=== PATIENT | male | born 1955 | race Caucasian/White ===

== ENCOUNTER 2019-04-03 13:43 | Outpatient (CLI) | payer BC ==
--- NOTE | 2019-04-04 22:15 | XRAY Report ---
Reason: HAND JOINT PAIN,RIGHT Procedure Date: 04/03/2019 Accession Number: [id number] / [id number] Procedure: XRN - Hand 3 View RT CPT Code: FULL RESULT: EXAM: RIGHT HAND RADIOGRAPHY EXAM DATE: 04/03/2019 02:09 PM. CLINICAL HISTORY: HAND JOINT PAIN,RIGHT. COMPARISON: None. TECHNIQUE: 3 views. FINDINGS: Bones: No acute fractures or suspicious bone lesions. Joints: No subluxations. Soft Tissues: Unremarkable. IMPRESSION: No acute radiographic abnormalities. RADIA
== END 2019-04-03 13:44 | disposition home or self-care (01) ==
LOC: DI.N 13:43
PROVIDERS: ATTEND Family Medicine
DX: M79.641 Pain in right hand (principal)

== ENCOUNTER 2019-04-17 08:00 | Outpatient (CLI) | payer BC ==
[2019-04-17 13:00] LABS: BASOPHILS # (AUTO) 0.1 10^3/uL (0.0-0.1); BASOPHILS % (AUTO) 0.7 %; EOSINOPHILS # (AUTO) 0.6 10^3/uL (0.0-0.7); EOSINOPHILS % (AUTO) 6.1 %; HGB - HEMOGLOBIN 16.3 g/dL (14.0-18.0); LYMPHOCYTES # (AUTO) 4.1 10^3/uL (1.5-3.5); LYMPHOCYTES % (AUTO) 45.5 %; MEAN CORPUSCULAR HEMOGLOBIN 33.2 pg (27.0-31.0); MEAN CORPUSCULAR HGB CONC 34.4 g/dL (32.0-36.0); MEAN CORPUSCULAR VOLUME 96.5 fL (80.0-94.0); MEAN PLATELET VOLUME 10.7 fL (7.4-11.4); MONOCYTES # (AUTO) 0.7 10^3/uL (0.0-1.0); MONOCYTES % (AUTO) 8.1 %; NEUTROPHILS # (AUTO) 3.6 10^3/uL (1.5-6.6); NEUTROPHILS % (AUTO) 39.2 %; PLT - PLATELET COUNT 250 10^3/uL (130-450); RED BLOOD COUNT 4.91 10^6/uL (4.70-6.10); RED CELL DISTRIBUTION WIDTH 12.4 % (12.0-15.0); WHITE BLOOD COUNT 9.1 x10^3/uL (4.8-10.8)
[2019-04-17 17:33] LABS: ALBUMIN 4.3 g/dL (3.2-5.5); ALBUMIN/GLOBULIN RATIO 1.3 (1.0-2.2); ALKALINE PHOSPHATASE 84 IU/L (42-121); ALT ALANINE AMINOTRANSFERASE 28 IU/L (10-60); AST ASPARTATE AMINOTRANSFERASE 37 IU/L (10-42); BILIRUBIN,TOTAL 0.8 mg/dL (0.2-1.0); BUN - BLOOD UREA NITROGEN 15 mg/dL (6-20); CARBON DIOXIDE - CO2 25 mmol/L (21-32); CHLORIDE 105 mmol/L (101-111); CHOL/HDL RATIO 3.3 (<5.0); CHOLESTEROL 189 mg/dL; CREATININE 0.8 mg/dL (0.6-1.2); GFR - MDRD 98 (>89); GLUCOSE 97 mg/dL (70-100); HDL CHOLESTEROL 57 mg/dL; LDL CHOLESTEROL,CALCULATED 105 mg/dL; LDL/HDL RATIO 1.8 (<3.6); SODIUM 140 mmol/L (135-145); TOTAL PROTEIN 7.6 g/dL (6.7-8.2); VLDL CHOLESTEROL 27 mg/dL
== END 2019-04-17 08:01 | disposition home or self-care (01) ==
LOC: LAB.N 08:00
PROVIDERS: ATTEND Family Medicine
DX: I10 Essential (primary) hypertension (principal)
CPT/HCPCS: 36415; 80053; 80061; 83721; 84443; 85025

== ENCOUNTER 2021-10-29 11:47 | Emergency (ER) | payer BC, MEDICARE ==
--- NOTE | 2021-10-29 12:48 | ED Physician Documentation ---
History of Present Illness - Stated complaint Stated Complaint: HIGH BP - Chief complaint Chief Complaint: Cardiac - History obtained from History obtained from: Patient - Additonal information Additional information: Patient comes emergency department With chief complaint of elevated blood pressure. Patient denies any symptoms. No chest pain, shortness of breath, visual changes, or other focal neurologic deficits. He states that he stopped his Norvasc and lisinopril about a year ago after being on them for 8 years, because he felt he did not need them anymore. He had retired, but is attempting to get back into employment and when he went for a fit testing for prospective job at the [employer], he was told to come here because his blood pressure was 200/110. Patient states that he started taking his blood pressure medications again about 3 days ago, but his blood pressure still high. He got a reading of 180/100 at home, but then it did come down to 175/75. He denies any other complaints at this time. He is waiting to see his new primary care physician Dr. Cervantes at the beginning of December. He had a negative stress test a couple years ago. Review of Systems Ten Systems: 10 systems reviewed and negative Constitutional: reports: Reviewed and negative Eyes: reports: Reviewed and negative Ears: reports: Reviewed and negative Nose: reports: Reviewed and negative Throat: reports: Reviewed and negative Cardiac: reports: Reviewed and negative Respiratory: reports: Reviewed and negative GI: reports: Reviewed and negative : reports: Reviewed and negative Skin: reports: Reviewed and negative Musculoskeletal: reports: Reviewed and negative Neurologic: reports: Reviewed and negative Psychiatric: reports: Reviewed and negative Endocrine: reports: Reviewed and negative Immunocompromised: reports: Reviewed and negative PD PAST MEDICAL HISTORY - Past Medical History Past Medical History: Yes - Past Surgical History Past Surgical History: Yes Ortho: Arthroscopic surgery - Present Medications Home Medications: Ambulatory Orders Medication Instructions Recorded Confirmed Lisinopril [Zestril] 40 mg PO DAILY #90 tablet 10/29/21 - Allergies Allergies/Adverse Reactions: Allergies Allergy/AdvReac Type Severity Reaction Status Date / Time No Known Drug Allergies Allergy Verified 10/29/21 12:04 - Social History Does the pt smoke?: No Smoking Status: Never smoker Does the pt drink ETOH?: Yes ETOH Use: Beer Does the pt have substance abuse?: No - Immunizations Immunizations are current?: Yes - POLST Patient has POLST: No PD ED PE NORMAL - Vitals Vital signs reviewed: Yes - General General: Alert and oriented X 3, No acute distress, Well developed/nourished - HEENT HEENT: Atraumatic, PERRL, EOMI, Moist mucous membranes - Neck Neck: Supple, no meningeal sign - Cardiac Cardiac: RRR, No murmur, Strong equal pulses - Respiratory Respiratory: No respiratory distress, Clear bilaterally - Abdomen Abdomen: Soft, Non tender, Non distended - Derm Derm: Normal color, Warm and dry, No rash - Extremities Extremities: No deformity, No edema, No calf tenderness / cord - Neuro Neuro: Alert and oriented X 3, outplacement consultant 2-12 intact, Normal speech - Psych Psych: Normal mood, Normal affect Results - Vitals Vitals: Vital Signs - 24 hr 10/29/21 10/29/21 11:55 12:57 Temperature 36.6 C 37.2 C Heart Rate 80 64 Respiratory 18 18 Rate Blood Pressure 174/95 H 167/87 H O2 Saturation 99 94 Oxygen O2 Source Room air PD MEDICAL DECISION MAKING - ED course Complexity details: considered differential, d/w patient ED course: The patient was very well-appearing in the emergency department and did not display any signs or symptoms of hypertensive emergency. We have discussed being back on his medications and that he can actually increase his lisinopril to 40 mg in the morning from 60 if after couple of weeks of being back on the meds he does not notice any improvement. We have also discussed potentially taking a 20 mg tab of lisinopril in the evening if he is having elevated readings first thing after waking up. We discussed symptoms of hypertensive emergency which should prompt immediate return to the emergency department. Departure - Departure Disposition: 01 Home, Self Care Clinical Impression: Hypertension Qualifiers: Hypertension type: primary hypertension Qualified Code(s): I10 - Essential (primary) hypertension Condition: Stable Instructions: ED Hypertension Conf Out Of Control Prescriptions: Lisinopril [Zestril] 40 mg PO DAILY #90 tablet Comments: Your blood pressure is high but you do not have any symptoms with this. You have restarted your blood pressure medicine, which is good. Most likely, it will take some weeks for your body to adjust to being back on blood pressure medication and to see a trend down to normal levels. You may need to increase your lisinopril if after another couple of weeks you are not seeing significant improvement in your blood pressure. You may increase the lisinopril to 40 mg in the morning instead of 20mg. If after couple of weeks this still does not improve your blood pressure, or if you are noticing that your blood pressure immediately after awakening is greater than 140 for the top number, you may want to consider taking another 20 mg of your lisinopril at night before going to bed. Please keep your appointment to follow-up with Dr. Cervantes in 2 months. If you develop any chest pain or shortness of breath or strokelike symptoms, you should return to the emergency department immediately. A prescription for the extra lisinopril has been sent to [facility] pharmacy in [place].
[2021-10-29 12:58] VITALS: BP 167/87
== END 2021-10-29 13:03 | disposition home or self-care (01) ==
LOC: ED 11:47
DX: I10 Essential (primary) hypertension (principal)
CPT/HCPCS: 99282; 99283

== ENCOUNTER 2021-12-15 12:09 | Outpatient (CLI) | payer MEDICARE ==
--- NOTE | 2021-12-15 13:58 | CT Report ---
PROCEDURE: Low Dose Lung Cancer Screen INDICATIONS: CURRENT SMOKER TECHNIQUE: Noncontrast low-dose images were acquired from the pulmonary apices to the posterior costophrenic ang les. Multiplanar MIP reformats were then acquired. For radiation dose reduction, the following was used: automated exposure control, adjustment of mA and/or kV according to patient size. COMPARISON: None. FINDINGS: Thyroid: Homogeneous. Vasculature: Normal size and contour. Mild calcified atheromatous change of the aorta. Heart: No cardiomegaly or pericardial effusion. Mediastinum/ancelmo: No pathologically enlarged lymph nodes by size criteria. Trace hiatal hernia. Lung/pleura: No consolidation, pleural effusion, or pneumothorax. No suspicious pulmonary nodule or mass. Tracheobronchial tree: Patent. Upper abdomen: No acute abnormality. Bones: No significant abnormality. Multifocal degenerative change. Chest wall: No significant abnormality. IMPRESSION: 1.No significant abnormality. Lung RADS: 1: Continue annual CT follow-up in 12 months. Reviewed by: Ramez Nicole MD on 12/15/2021 1:56 PM PDT Approved by: Ramez Nicole MD on 12/15/2021 1:56 PM PDT Station ID: [id number]
== END 2021-12-15 12:10 | disposition home or self-care (01) ==
LOC: DI 12:09
PROVIDERS: ATTEND Internal Medicine
DX: Z12.2 Encounter for screening for malignant neoplasm of respiratory organs (principal); F17.210 Nicotine dependence, cigarettes, uncomplicated

== ENCOUNTER 2022-01-07 09:04 | Outpatient (CLI) | payer MEDICARE ==
[2022-01-07] MEDS ORDERED: ALBUTEROL 1 PUFF INH STA (09:51)
== END 2022-01-07 09:05 | disposition home or self-care (01) ==
LOC: RT 09:04
PROVIDERS: ATTEND Internal Medicine
DX: R06.00 Dyspnea, unspecified (principal)
CPT/HCPCS: 94060; 94664

== ENCOUNTER 2024-01-06 16:22 | Outpatient (CLI) | payer MEDICARE ==
--- NOTE | 2024-01-06 18:53 | Ultrasound Report ---
PROCEDURE: Carotid Doppler Complete INDICATIONS: TRANSIENT VISION LOSS TECHNIQUE: Color and pulse Doppler interrogation was performed of both carotid systems, with image documentation and velocity measurements. COMPARISON: None. FINDINGS: Right side: Brachial blood pressure: 149/70 mm Hg. Common carotid artery peak systolic velocity: 61.0 cm/sec. Internal carotid artery peak systolic velocity: 86.2 cm/sec. Internal carotid artery end diastolic velocity: 33.1 cm/sec. External carotid artery peak systolic velocity: 99.0 cm/sec. ICA/CCA peak systolic ratio: 1.4 . Valdovinos scale imaging description: Moderate atherosclerotic plaques are noted throughout visualized righ t distal common carotid artery and origins of right internal and external carotid arteries. Percent internal carotid artery stenosis: Less than 50 percent stenosis. Vertebral artery: Flow direction is antegrade. Left side: Brachial blood pressure: 136/70 mm Hg. Common carotid artery peak systolic velocity: 30.6 cm/sec. Internal carotid artery peak systolic velocity: 59.6 cm/sec. Internal carotid artery end diastolic velocity: 15.5 cm/sec. External carotid artery peak systolic velocity: 129.2 cm/sec. ICA/CCA peak systolic ratio: 1.9 . 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 Percent internal carotid artery stenosis: Complete occlusion. Vertebral artery: Flow direction is antegrade. IMPRESSION: 1. In the right internal carotid artery, there is less than 50 percent stenosis based on peak systoli c velocity criteria. 2. 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 3. Antegrade blood flow within the right vertebral artery. 4. Antegrade blood flow within the left vertebral artery. The estimate of stenosis included in the report of the imaging study was calculated using the [facility]-end orsed standards of carotid artery stenosis. Reviewed by: Ramón Tilley MD on 01/06/2024 6:51 PM PDT Approved by: Ramón Tilley MD on 01/06/2024 6:51 PM PDT Station ID: [id number]
== END 2024-01-06 16:23 | disposition home or self-care (01) ==
LOC: DI 16:22
PROVIDERS: ATTEND Physician Assistant
DX: I65.23 Occlusion and stenosis of bilateral carotid arteries (principal)
CPT/HCPCS: 93880

== ENCOUNTER 2024-01-23 08:04 | Outpatient (CLI) | payer MEDICARE ==
[~2024-01-23 08:04] MED LIST: GADOTERATE MEGLUMINE 10 MMOL/20 ML VIAL ONE
[2024-01-23 08:25] LABS: CALCIUM 9.7 mg/dL (8.5-10.3); CREATININE 1.1 mg/dL (0.6-1.3); POTASSIUM 3.9 mmol/L (3.5-4.5)
[2024-01-23] MEDS: GADOTERATE MEGLUMINE 10 MMOL/20 ML VIAL IVP ONE (10:45)
--- NOTE | 2024-01-24 01:02 | MRI Report ---
PROCEDURE: CT angiogram brain with and without contrast INDICATIONS: OCCLUSION AND STENOSIS OF LEFT CAROTID ARTERY TECHNIQUE: [id number] 3-D MR angiogram of the brain was obtained without contrast and 3-dimension al maximum intensity projection (MIP) volume rendering was constructed. COMPARISON: None. FINDINGS: Internal carotid arteries: Distal petrous, cavernous and supraclinoid left ICA is obstructed. The ter minus masses supplied probably through retrograde flow from the left A1 THIEN as well as the left poste rior communicating artery is widely patent. Anterior cerebral arteries: Unremarkable. No significant stenosis. No occlusion. No aneurysm. Middle cerebral arteries: Unremarkable. No significant stenosis. No occlusion. No aneurysm. Posterior cerebral arteries: Unremarkable. No significant stenosis. No occlusion. No aneurysm. Basilar artery: Unremarkable. No significant stenosis. No occlusion. No aneurysm. Vertebral arteries: Unremarkable as visualized. Other: Visualized portions of the brain unremarkable. IMPRESSION: Occluded left petrous, cavernous and supraclinoid ICA. Reviewed by: Tomas Ortez MD on 01/24/2024 12:00 AM CELSO Approved by: Tomas Ortez MD on 01/24/2024 12:00 AM CELSO Station ID: [id number]
== END 2024-01-23 08:05 | disposition home or self-care (01) ==
LOC: LAB 08:04
PROVIDERS: ATTEND Physician Assistant
DX: I65.22 Occlusion and stenosis of left carotid artery (principal); Z79.899 Other long term (current) drug therapy
CPT/HCPCS: 36415; 70546; 80048; A9575

== ENCOUNTER 2024-03-06 12:11 | Outpatient (CLI) | payer MEDICARE | END 2024-03-06 12:12 | disposition home or self-care (01) | LOC: DI 12:11 | PROVIDERS: ATTEND Physician Assistant | DX: H53.122 Transient visual loss, left eye (principal) | CPT/HCPCS: 93307 ==